=== PATIENT | female | born 1990 | race Caucasian/White ===

== ENCOUNTER 2022-09-02 08:22 | Outpatient (CLI) | payer OTHER, SELFPAY ==
[2022-09-02 14:12] LABS: Albumin* 4.5 g/dL (3.3-5.0); Chloride* 105 mmol/L (96-114)
[2022-09-02 14:13] LABS: Potassium* 4.3 mmol/L (3.6-5.1); Sodium* 142 mmol/L (135-149)
[2022-09-02 14:15] LABS: Alkaline Phosphatase* 57 U/L (40-150); Aspartate Amino Transferase* 21 U/L (12-35); Bilirubin Total* 0.5 mg/dL (0.1-1.5); Blood Urea Nitrogen* 10 mg/dL (5-24); Carbon Dioxide* 30 mmol/L (20-32); Cholesterol* 115 mg/dL (90-199); Creatinine* 0.6 mg/dL (0.5-1.5); Estimated Glomerular Filt Rate 121 ml/min; Glucose* 99 mg/dL (60-115); Total Protein* 7.4 g/dL (6.0-8.3)
[2022-09-02 14:16] LABS: Alanine Aminotransferase* 18 U/L (4-35); Calcium* 8.9 mg/dL (8.4-10.6); HDL Cholesterol* 58 mg/dL (>=50); LDL Cholesterol Calculated 43 mg/dL (<100); Triglycerides* 72 mg/dL (40-149)
== END 2022-09-02 08:23 | disposition home or self-care (01) ==
PROVIDERS: PCP Family Medicine; Visit Provider Family Medicine
DX: Z00.00 Encounter for general adult medical examination without abnormal findings (principal); R53.83 Other fatigue; Z13.6 Encounter for screening for cardiovascular disorders; Z86.32 Personal history of gestational diabetes
CPT/HCPCS: 80053; 80061; 84443

== ENCOUNTER 2023-08-09 19:44 | Outpatient (CLI) | payer OTHER, SELFPAY ==
--- NOTE | 2023-08-16 11:50 | W.PM.SLEEP ---
Sleep Study Details Details Interpreting Provider: Rinku Date of Sleep Study: 08/09/23 Sleep Study Details: STUDY TYPE:? Home unattended ? BMI:? 36.6 ORDERING PROVIDER:Diane Espinoza INDICATION:? Concerns about sleep apnea ? SLEEP SUMMARY:? 483.2 minutes monitored RESPIRATORY SUMMARY:? AHI is 1.3, AHI was rule 1A is 3.3, low oxygen 89 Minimal snoring Patient had AHI of 5.3 in the supine position PERIODIC LIMB MOVEMENTS OF SLEEP:? Not recorded during home study CARDIAC:? Range 68-112, mean 84.5 IMPRESSION:? Overall AHI is well within normal limits. The patient does have mild obstructive sleep apnea with an AHI of 5.3 in the supine position RECOMMENDATION: Avoidance of supine sleep. If sleep disorder is strongly suspected could repeat study in the hospital.
== END 2023-08-09 19:45 | disposition home or self-care (01) ==
LOC: SLEEP 19:47
PROVIDERS: PCP Family Medicine; Visit Provider Family Medicine
DX: G47.33 Obstructive sleep apnea (adult) (pediatric) (principal)
CPT/HCPCS: 95806

== ENCOUNTER 2023-10-03 07:42 | Outpatient (CLI) | payer OTHER, SELFPAY | END 2023-10-03 07:43 | disposition home or self-care (01) | PROVIDERS: PCP Family Medicine; Visit Provider Family Medicine | DX: R73.03 Prediabetes (principal); Z13.21 Encounter for screening for nutritional disorder; G47.9 Sleep disorder, unspecified | CPT/HCPCS: 80053; 80061; 82306; 83540; 83550 ==

== ENCOUNTER 2023-10-21 08:00 | Outpatient (RCR) | payer OTHER, SELFPAY | END 2023-12-30 12:20 | disposition home or self-care (01) | PROVIDERS: PCP Family Medicine; Visit Provider Family Medicine | DX: M54.9 Dorsalgia, unspecified (principal); Z51.89 Encounter for other specified aftercare | CPT/HCPCS: 97110; 97161 ==

== ENCOUNTER 2023-11-29 20:55 | Outpatient (CLI) | payer OTHER, SELFPAY ==
--- NOTE | 2023-12-14 08:38 | W.PM.SLEEP ---
Sleep Study Details Details Interpreting Provider: Jesus Date of Sleep Study: 11/29/23 Sleep Study Details: STUDY TYPE:? Multiple sleep latency test ? BMI:? Not recorded ORDERING PROVIDER:? Rinku INDICATION:? Severe daytime hypersomnolence with negative home sleep study ? SLEEP SUMMARY:? This is an MSLT report. The patient had an overnight [facility] polysomnogram which will be dictated separately but did demonstrate mild obstructive sleep apnea. The patient had 5 naps with a mean sleep latency of 5.4 minutes. None of the naps included REM stage sleep RESPIRATORY SUMMARY:? Not record PERIODIC LIMB MOVEMENTS OF SLEEP:? Not recorded CARDIAC:? Not record IMPRESSION:? MSLT following overnight polysomnography. The overnight polysomnogram will be dictated separately but did demonstrate mild obstructive sleep apnea much worse in the supine position. And therefore this study is not particularly relevant given the positive polysomnogram. Nonetheless this study demonstrates a mean sleep latency of 5.4 minutes with no REM stage sleep. This would be consistent with excessive daytime sleepiness or hypersomnolence RECOMMENDATION: Would recommend treatment of the obstructive sleep apnea.
--- NOTE | 2023-12-14 08:41 | W.PM.SLEEP ---
Sleep Study Details Details Interpreting Provider: Rinku Date of Sleep Study: 11/29/23 Sleep Study Details: STUDY TYPE:? Hospital-based attended ? BMI:? 36.6 ORDERING PROVIDER: Rinku INDICATION:? Severe daytime hypersomnolence. Negative unattended sleep study. ? SLEEP SUMMARY: 418 minutes total sleep time RESPIRATORY SUMMARY:? Mean oxygen awake 95, asleep 94, minimum 86 1.4 minutes oxygen between 80 and 88% AHI 11.3, supine 43.2, nonsupine 3.6. There was no supine REM stage sleep seen PERIODIC LIMB MOVEMENTS OF SLEEP:? None CARDIAC:? Awake 93, asleep 85. No arrhythmias noted IMPRESSION:? Mild obstructive sleep apnea with significant supine position dependency RECOMMENDATION: Treatment options include positional therapy, AutoSet CPAP, dental appliance and/or airway expansion surgery. Weight loss is also recommended.
== END 2023-11-29 20:56 | disposition home or self-care (01) ==
LOC: SLEEP 20:56
PROVIDERS: PCP Family Medicine; Visit Provider Otolaryngology
DX: G47.33 Obstructive sleep apnea (adult) (pediatric) (principal)
CPT/HCPCS: 95805; 95810

== ENCOUNTER 2024-09-27 15:04 | Outpatient (CLI) | payer OTHER, SELFPAY | END 2024-09-27 15:05 | disposition home or self-care (01) | PROVIDERS: PCP Family Medicine; Visit Provider Family Medicine | DX: R73.03 Prediabetes (principal); R29.818 Other symptoms and signs involving the nervous system; G47.9 Sleep disorder, unspecified; R47.89 Other speech disturbances; Z13.6 Encounter for screening for cardiovascular disorders; Z13.1 Encounter for screening for diabetes mellitus | CPT/HCPCS: 80053; 80061; 84443 ==

== ENCOUNTER 2024-10-09 14:14 | Outpatient (CLI) | payer OTHER, SELFPAY ==
--- NOTE | 2024-10-09 14:30 | CRLHL7_ITS ---
For Patients: As a result of the Century Cures Act, medical imaging exams and procedure reports are released immediately into your electronic medical record. You may view this report before your referring provider. If you have questions, please contact your health care provider. Indication: Sudden onset immobility, speech change Technique: Multiplanar, multisequence MRI of the brain obtained without and with contrast. A total of 20 mL of Dotarem IV contrast was administered. Comparison: None. Findings: The ventricles and cortical sulci are age-appropriate in size and configuration. No midline shift or mass effect. No acute intracranial hemorrhage or abnormal extra-axial fluid collection. No evidence of acute/subacute ischemia. White matter signal appears within normal limits. No abnormal enhancement identified. Midline structures are unremarkable. The major expected intracranial flow voids are visualized. Included bone marrow signal is unremarkable. No suspicious findings in the regional soft tissues. Incidental small left paramedian posterior nasopharyngeal mucous retention cyst. Paranasal sinuses and mastoid air cells have a normal signal. Visualized orbits are unremarkable. Impression: 1. Unremarkable MRI brain. No evidence of acute intracranial abnormality. Dictated by Marilyn Resendez MD @ 10/09/2024 4:31:11 PM (Electronically Signed)
--- NOTE | 2024-10-09 15:30 | CRLHL7_ITS ---
For Patients: As a result of the Century Cures Act, medical imaging exams and procedure reports are released immediately into your electronic medical record. You may view this report before your referring provider. If you have questions, please contact your health care provider. Indication: Sudden onset immobility, speech change Technique: Multiplanar, multisequence MRI of the cervical spine obtained without contrast. Comparison: Same day MRI brain Findings: The normal cervical lordosis is preserved. No significant spondylolisthesis. Vertebral body heights are within normal limits. No evidence of acute fracture. Bone marrow signal is unremarkable. Included posterior fossa structures are unremarkable. Visualized spinal cord appears normal in course and caliber. No convincing cord signal abnormality. Symmetric prominence of the palatine tonsils. No concerning findings in the paraspinal soft tissues. C2-C3: No neural foraminal or spinal canal stenosis. C3-C4: No neural foraminal or spinal canal stenosis. C4-C5: Shallow left central disc protrusion. No neural foraminal or spinal canal stenosis. C5-C6: Posterior disc-osteophyte complex, mild uncovertebral arthropathy. Mild bilateral neural foraminal narrowing. Mild spinal canal narrowing. C6-C7: Shallow posterior disc-osteophyte complex, mild uncovertebral arthropathy. No right, mild left neural foraminal narrowing. Mild spinal canal narrowing. C7-T1: Small right central disc protrusion. No neural foraminal or spinal canal stenosis. Impression: 1. Mild cervical spondylosis as detailed. 2. At C5-C6, mild bilateral neural foraminal narrowing, and mild spinal canal narrowing. 3. At C6-C7, mild left neural foraminal narrowing, and mild spinal canal narrowing. 4. No cord compression or cord signal abnormality. Dictated by Marilyn Resendez MD @ 10/09/2024 4:34:38 PM (Electronically Signed)
== END 2024-10-09 14:15 | disposition home or self-care (01) ==
LOC: MRI 14:14
PROVIDERS: PCP Family Medicine; Visit Provider Family Medicine
DX: R47.89 Other speech disturbances (principal); R29.818 Other symptoms and signs involving the nervous system; G83.20 Monoplegia of upper limb affecting unspecified side; M47.892 Other spondylosis, cervical region
CPT/HCPCS: 70553; 72141; A9575